=== PATIENT | male | born 1965 | race Caucasian/White ===

== ENCOUNTER 2025-03-14 21:23 | Emergency (ER) | payer OTHER, SELFPAY ==
[2025-03-14 21:44] VITALS: BP 112/89; PULSE 80; RESP 16; TEMP 36.8; O2SAT 98
[2025-03-15 00:49] VITALS: BP 138/114; PULSE 71; RESP 16; O2SAT 99
[2025-03-15 00:53] VITALS: BP 135/89; PULSE 67; RESP 16; O2SAT 98
--- NOTE | 2025-03-15 01:28 | ED_ITS ---
HPI - General Adult General Chief complaint: Back Pain/Injury Stated complaint: back pain Time Seen by Provider: 03/15/25 00:52 History of Present Illness HPI narrative: This is a 59-year-old male history of chronic knee pain presenting for knee pain and back spasms. 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 At the end of his day he started to get spasms in his mid back and his lower back. He also has aching pain in his knees which is chronic he thinks he needs a total knee replacement. No traumatic injury. He has been taking NSAIDs and tizanidine with minimal relief. No lower extremity weakness urinary retention or bowel incontinence. No fevers history of cancer. Denies drug use. Related Data Allergies Allergy/AdvReac Type Severity Reaction Status Date / Time codeine Allergy Intermediate Swelling Verified 03/14/25 21:49 Exam Narrative: APPEARANCE: No apparent distress. Head: atraumatic. EYES: EOMI, NOSE: Atraumatic NECK//back: No overlying skin changes. Tenderness to palpation over the parathoracic and paralumbar muscles. RESPIRATORY: No increased rate of breathing clear to auscultation CARDIOVASCULAR: RRR, no peripheral edema ABDOMINAL: Non-distended MUSCULOSKELETAl: Focal exam of the knees revealed no obvious swelling. No overlying skin changes. No warmth. Patient is able ambulate. Legs are neurovascularly intact. NEURO: Alert. Moving 4/4 extremities SKIN:: Warm, dry. Normal color PSYCHIATRIC: Normal affect Course Vital Signs Vital signs: Vital Signs Temperature 98.2 F 03/14/25 21:44 Pulse Rate 80 03/14/25 21:44 Respiratory Rate 16 03/14/25 21:44 Blood Pressure 112/89 03/14/25 21:44 Pulse Oximetry 98 03/14/25 21:44 Oxygen Delivery Room Air 03/14/25 21:44 Temperature 98.2 F 03/14/25 21:44 Pulse Rate 67 03/15/25 00:53 Respiratory Rate 16 03/15/25 00:53 Blood Pressure 135/89 03/15/25 00:53 Pulse Oximetry 98 03/15/25 00:53 Oxygen Delivery Room Air 03/15/25 00:49 Medical Decision Making [facility] Narrative Medical decision making narrative: -Course: 59-year-old male with a history of back spasms knee pain presenting with back spasms any pain. Physical exam is unremarkable. Patient be given symptomatic treatment. Patient has had 15 at an outside hospital so no need to repeat today. No midline spinal tenderness to indicate imaging for his back. He has requested crutches for his knees although I am not sure why. These were provided. Patient's discharged. -DDX includes but is not limited to: Back spasms, muscle strain, arthritis Vital Signs Vital Signs: Vital Signs Temperature 98.2 F 03/14/25 21:44 Pulse Rate 80 03/14/25 21:44 Respiratory Rate 16 03/14/25 21:44 Blood Pressure 112/89 03/14/25 21:44 Pulse Oximetry 98 03/14/25 21:44 Oxygen Delivery Room Air 03/14/25 21:44 Temperature 98.2 F 03/14/25 21:44 Pulse Rate 67 03/15/25 00:53 Respiratory Rate 16 03/15/25 00:53 Blood Pressure 135/89 03/15/25 00:53 Pulse Oximetry 98 03/15/25 00:53 Oxygen Delivery Room Air 03/15/25 00:49 Discharge Plan Discharge Clinical Impression: Muscle spasm, Acute knee pain Patient Disposition: Home Condition: Stable Instructions: Antibiotic Form, Muscle Spasm (ED) Additional Instructions: Please use the prescribed medications as directed for your back and knee pain. Please follow-up your primary care physician for further management. Patient Language: Albanian Prescriptions: New ibuprofen 800 mg tablet 800 mg PO TID PRN (Reason: pain) 7 Days Qty: 21 0RF acetaminophen 500 mg tablet 1,000 mg PO TID PRN (Reason: angelina) 7 Days Qty: 42 0RF methocarbamol 750 mg tablet 1,500 mg PO TID Qty: 45 0RF lidocaine 5 % adhesive patch,medicated 1 patch topical DAILY Qty: 15 0RF Rx Instructions: leave on most painful area for up to 12 hrs Follow-up/Referrals: UNKNOWN,DOCTOR [Primary Care Provider]
--- NOTE | 2025-03-15 01:46 | PC.NURSE ---
Pt ambulatory to bathroom
[2025-03-15] MEDS: ACETAMINOPHEN 500 MG TABLET 1000 MG PO (01:48)
[2025-03-15] MEDS: LIDOCAINE 5% PATCH 1 PATCH TRANSDERM (01:49)
[2025-03-15 01:58] VITALS: BP 140/97; PULSE 80; RESP 16; O2SAT 98
== END 2025-03-15 02:05 | disposition home or self-care (01) ==
PROVIDERS: Emergency Provider Emergency Medicine
DX: M62.838 Other muscle spasm (principal); M25.561 Pain in right knee; M25.562 Pain in left knee
CPT/HCPCS: 99284; A9270

== ENCOUNTER 2025-04-06 18:05 | Emergency (ER) | payer OTHER, SELFPAY ==
[2025-04-06 18:00] VITALS: BP 122/88; PULSE 102; RESP 17; TEMP 36.6; O2SAT 96
--- NOTE | 2025-04-06 18:09 | PC.NURSE ---
EDP made aware of pt flagging moderate risk on [place], pt denies thoughts of SI/HI, no sitter required at this time
--- NOTE | 2025-04-06 19:04 | ED.BACK ---
HPI - Back Pain/Injury General Chief Complaint: Back Pain/Injury Stated Complaint: back spasms Time Seen by Provider: 04/06/25 19:03 Source: patient and RN notes reviewed Mode of arrival: EMS Limitations: no limitations History of Present Illness HPI Narrative: Patient presents with report low back spasm as well as spasms in his bilateral ankles where he is also having pain. He has a chronic history of this. Initially reports that the back spasms are on the left but then seems indicates that they are bilateral in the flanks. He reports a history of vitamin deficiency. Patient had been on tizanidine but ran out a few days ago. This was prescribed by Natalie Bear, he believes this is a doctor through [facility]. He states that he has a history of a stress fracture and arthritis and chronic right knee pain that he was told was due to the tendon growing with the bone. 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 Treatment had been initiated by Dr Bowman. He has been told he needs right knee replacement. Patient has been walking 2-3 miles today which has exacerbated his pain. Does not currently drive a license. 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 Currently resides in [facility] in [place] which is a longterm for those in recovery. 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 He denies any history of fracture or recent trauma. No history of cancer. He denies intravenous drug use. Fevers or chills. Denies abdominal pain. He is not chronically been on steroids though he did have shots in his bilateral knees by his previous PCP Dr Washington in December. No diarrhea. He will occasionally experience numbness in his feet. He denies any urinary symptoms. No bowel or bladder incontinence. No saddle anesthesia. No syncope. Related Data Allergies Allergy/AdvReac Type Severity Reaction Status Date / Time codeine Allergy Intermediate Nausea Verified 04/06/25 18:07 [facility] Past Medical History Medical History Scoliosis Arthritis Stress fracture Chronic pain of right knee Hepatitis B Hepatitis C Vitamin deficiency Social History Social History Alcohol intake: former Alcohol use details: Quit 12/19/2024 Substance use: former Substance use type: methamphetamine Last use: 12/19/2024 Living arrangements: longterm Additional living arrangements comments: [facility], for recovery Exam Narrative: GENERAL: Well-appearing, well-nourished, and in no acute distress. HEAD: Normocephalic, atraumatic. EYES: Non injected, non icteric ENT: Nares clear, no rhinorrhea or epistaxis. Gross auditory acuity intact. NECK: Supple. No meningismus. CHEST: Speaking in full sentences. No respiratory distress. HEART: Regular rate and rhythm. . ABDOMEN: Soft, nondistended. No rigidity or guarding. Not peritoneal EXTREMITIES: Normal range of motion. No lower extremity edema. SKIN: Warm, dry, no rash. BACK: No midline tenderness to palpation. Bilateral paraspinal and flank pain without CVA tenderness, no appreciable spasm Demonstrates flexion extension of the lumbar spine. NEURO: No focal deficits. Alert and oriented. Answering questions. Following commands. Normal speech without aphasia or dysarthria. Sensation intact throughout back and bilateral lower extremities. 5/5 strength bilateral ankle dorsiflexion plantar flexion. PSYCH: Normal mood and affect. Course Vital Signs Vital signs: Vital Signs Temperature 97.9 F 04/06/25 18:00 Pulse Rate 102 H 04/06/25 18:00 Respiratory Rate 17 04/06/25 18:00 Blood Pressure 122/88 04/06/25 18:00 Pulse Oximetry 96 04/06/25 18:00 Oxygen Delivery Room Air 04/06/25 18:00 Temperature 97.9 F 04/06/25 18:00 Pulse Rate 72 04/06/25 21:48 Respiratory Rate 17 04/06/25 21:48 Blood Pressure 114/92 H 04/06/25 21:48 Pulse Oximetry 100 04/06/25 21:48 Oxygen Delivery Room Air 04/06/25 18:00 MDM - Back Pain/Injury MDM Narrative Medical decision making narrative: Patient presents report FX past bilateral a chronic issue for him by his report as per review previous presentation. In the emergency department he is afebrile with vital signs that show mild tachycardia. It appears that the prescriber of his tizanidine which he has been out of for a few days was Natalie Bear is a behavioral health [employer]. Back has no deformities, external skin changes, or signs of trauma. Curvature is within normal limits. No tenderness is noted on palpation of the spinous processes which are midline. Lumbar paraspinal muscles are without spasm. Patient demonstrates flexion, extension. Sensation to the lower extremities is normal bilaterally. Dorsi/plantar flexion is normal bilaterally. They do not have any other red flags for fracture, malignancy, infection (e.g. spinal epidural abscess), or aortic/vascular: Age, no trauma, not on chronic steroids, no history of cancer, no fever, IV drug use, immunosuppression, abdominal pain, syncope, or urinary symptoms. Given this, will defer further imaging at this time. Discussed this with patient who agrees as he has had imaging previously. Patient is wary of receiving opiates given he has a friend who had opiate addiction. Amenable to a one time dose of a benzodiazepine as a muscle relaxer. I did note I would indicate in DC instructions meds he had received in the emergency department as part of his emergency care given that he is in a house/program for recovery from addiction. Through shared decision making he was amenable to obtaining basic lab work to assess for possible other causes beyond jennifer musculoskeletal etiologies. Normocytic anemia. No prior for comparison. No leukocytosis. He has an azotemia but with a creatinine that is technically within normal limits. No prior for comparison. His AST and ALT are elevated with no prior for comparison although he reports history of hepatitis. CPK normal. No abnormalities of potassium or magnesium. No thrombocytopenia. Patient is reassessed at approximately 8:15 p.m.. He reports he is feeling much better terms of pain and spasm although medication did make him feel a little loopy. Urinalysis cloudy with ketonuria however without signs of infection were hematuria. UDS negative. Patient is otherwise stable for discharge at time. He is prescribed a multimodal pain regimen advised follow-up with primary care physician, either his home where he is provided the name of an alternative doctor if he is unable to reestablish care with his previous PCP. He is given strict ED return precautions and verifies understanding. Differential Diagnosis Differential diagnosis: Likely other (Rhabdomyolysis, hypokalemia, hypomagnesemia, symptomatic anemia) Medical Records Attestation: I reviewed the patient's medical records. Medical records narrative: REVIEWED [place] Record EMR from [facility] Right knee Xray 01/09/25 IMPRESSION: 1. 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 CPPD or Other forms of arthropathy are also possible 2. Trace joint effusion with probable joint bodies. 3. Chondrocalcinosis. He had received tizanidine Rx at that time by Dr Talon Rojas. No labs obtained at that time. Also reviewed ED note from previous [facility] ED visit Lab Data Attestation: I reviewed the patient's lab results. 04/06/25 19:37 04/06/25 19:37 Labs: Lab Results 04/06/25 04/06/25 04/06/25 Range/Units 19:36 19:37 20:15 WBC 6.3 (4.5-10.0) K/mm3 RBC 4.15 L (4.6-6.20) M/mm3 Hgb 13.3 L (14.0-18.0) g/dL Hct 40.8 L (42.0-52.0) % MCV 98.3 (80-100) fl MCH 32.0 (26-34) pg MCHC 32.6 (32-36) g/dl RDW 12.6 (11.5-14.5) % Plt Count 253 (150-375) k/mm3 MPV 8.8 (7.4-10.4) fl Immature Gran % (Auto) 0.2 (0-0.5) % Neut % (Auto) 63.8 (45.5-73.1) % Lymph % (Auto) 22.4 (18.3-44.2) % Holt % (Auto) 9.4 H (2.6-8.5) % Eos % (Auto) 3.7 (0-4.4) % Baso % (Auto) 0.5 (0.2-1.2) % Lymph # (Auto) 1.40 (0.9-3.2) K/mm3 Holt # (Auto) 0.6 (0.1-0.6) K/mm3 Eos # (Auto) 0.2 (0-0.3) K/mm3 Baso # (Auto) 0.0 (0.0-0.1) K/mm3 Abs Immat Gran (auto) 0.01 (0.00-0.031) K/mm3 Absolute Neuts (auto) 4.0 (1.3-6.7) K/mm3 Absolute Nucleated RBC 0.000 (0.0-0.012) K/mm3 Nucleated RBC % 0.0 (0.0-0.2) % Sodium 136 L (137-145) mmol/L Potassium 4.3 (3.4-5.0) mmol/L Chloride 105 (98-107) mmol/L Carbon Dioxide 26 (22-30) mmol/L Anion Gap 5 (4-12) mmol/L BUN 30 H (9-20) mg/dL Creatinine 1.03 (0.7-1.3) mg/dL Estim Creat Clear Calc 84 ml/min Estimated GFR > 60 (59 - ) Glucose 115 H (65-110) mg/dL Calcium 9.5 (8.4-10.2) mg/dL Magnesium 2.3 (1.6-2.3) mg/dL Total Bilirubin 0.4 (0.2-1.3) mg/dL AST 69 H (17-59) U/L ALT 88 H (6-50) U/L Alkaline Phosphatase 71 (38-126) U/L Total Creatine Kinase 141 (55-170) U/L Total Protein 8.4 H (6.3-8.2) g/dL Albumin 4.3 (3.5-5.1) g/dL Lipase 181 (23-300) U/L Urine Color Dark yellow (Yellow) Urine Appearance Cloudy H (Clear) Urine pH 5.0 (5.0-9.0) Ur Specific [place] 1.032 (1.001-1.035) Urine Protein Trace (Negative) mg/dL Urine Glucose (UA) Negative (Negative) mg/dL Urine Ketones Trace H (Negative) mg/dL Ur Blood (Man) Negative (Negative) Urine Nitrate Negative (Negative) Urine Bilirubin Negative (Negative) Urine Urobilinogen 1.0 (<2.0) mg/dL Add Ur Microanalysis Reviewed Leukocyte Esterase Rfl Negative (Negative) RAMON/UL Urine RBC 0-2 (0-2) /hpf Urine WBC 0-5 (0-3) /hpf Ur Squamous Epith Cells Occasional (Few) /hpf Urine Bacteria None seen /hpf Urine Casts >20 Hyaline Casts Present (None) /lpf Urine Opiates Screen Negative (Negative) Urine Methadone Screen Negative (Negative) Ur Barbiturates Screen Negative (Negative) Ur Phencyclidine Scrn Negative (Negative) Ur Amphetamine Screen Negative (Negative) U Benzodiazepines Scrn Negative (Negative) Urine Cocaine Screen Negative (Negative) U Cannabinoids Screen Negative (Negative) Discharge Plan Discharge Clinical Impression: Normocytic anemia, Azotemia, Transaminitis, Spasm of back muscles, Bilateral ankle pain, Bilateral flank pain Patient Disposition: Home Condition: Stable Instructions: Antibiotic Form, Flank Pain (ED), Arthralgia (ED), Muscle Spasm (ED), Anemia (ED), Transaminitis (ED) Additional Instructions: Patient notably received a dose of a muscle relaxer that is a benzodiazepine as part of his Emergency care. His urine drug screen prior to receiving this medication was normal/without abnormalities. == Acetaminophen/Tylenol (maximum 4000 mg per day) is safe to take with NSAIDs (ibuprofen/Motrin) for pain relief. A muscle relaxer and lidocaine patch have also been prescribed. The rest of your work up did not reveal a cause of your symptoms such as profound low red blood cell count (it was only mildly low/abnormal), electrolyte abnormalities, increased muscle breakdown, low platelets, etc. Follow-up with primary care physician. If you do not have 1, the name of a doctor is listed below. Return to the ER if you have increased pain in your back, you develop lower extremity weakness/numbness/paralysis, you have numbness or tingling in your private parts, or you are unable to control your ability to urinate/stool. Patient Language: Kinyarwanda Prescriptions: New lidocaine 4 % adhesive patch,medicated 1 patch topical DAILY PRN (Reason: pain) Qty: 10 0RF ibuprofen 600 mg tablet 600 mg PO TID PRN (Reason: pain) Qty: 30 0RF acetaminophen 500 mg capsule 1,000 mg PO Q6H PRN (Reason: pain) Qty: 30 0RF methocarbamol 750 mg tablet 750 mg PO HS Qty: 7 0RF No Action ibuprofen 800 mg tablet 800 mg PO TID PRN (Reason: pain) 7 Days Qty: 21 0RF acetaminophen 500 mg tablet 1,000 mg PO TID PRN (Reason: angelina) 7 Days Qty: 42 0RF methocarbamol 750 mg tablet 1,500 mg PO TID Qty: 45 0RF lidocaine 5 % adhesive patch,medicated 1 patch topical DAILY Qty: 15 0RF Rx Instructions: leave on most painful area for up to 12 hrs Follow-up/Referrals: Caryl Gonzalez DO [Physician, Family Practice] UNKNOWN,DOCTOR [Non-Staff] Stand Alone Forms: Work/School Release IP Time of Disposition: 20:57
[2025-04-06] MEDS: diazePAM (*CRX) 5 MG TABLET PO (19:34)
[2025-04-06 19:42] LABS: Hematocrit 40.8 % (42.0-52.0); Hemoglobin 13.3 g/dL (14.0-18.0); Immature Granulocyte Percent A 0.2 % (0-0.5); Lymphocytes Absolute Auto 1.40 K/mm3 (0.9-3.2); Mean Corpuscular HGB Conc 32.6 g/dl (32-36); Mean Corpuscular Hemoglobin 32.0 pg (26-34); Mean Corpuscular Volume 98.3 fl (80-100); Nucleated Red Blood Cells Absolute Auto 0.000 K/mm3 (0.0-0.012); Nucleated Red Blood Cells Perc 0.0 % (0.0-0.2); Platelet Count Result 253 k/mm3 (150-375); Red Blood Count 4.15 M/mm3 (4.6-6.20); White Blood Count 6.3 K/mm3 (4.5-10.0)
[2025-04-06 19:54] LABS: Alanine Aminotransferase 88 U/L (6-50); Albumin Level 4.3 g/dL (3.5-5.1); Alkaline Phosphatase 71 U/L (38-126); Anion Gap 5 mmol/L (4-12); Aspartate Amino Transferase 69 U/L (17-59); Bilirubin,Total 0.4 mg/dL (0.2-1.3); Blood Urea Nitrogen 30 mg/dL (9-20); Calcium 9.5 mg/dL (8.4-10.2); Carbon Dioxide 26 mmol/L (22-30); Chloride 105 mmol/L (98-107); Creatine Kinase 141 U/L (55-170); Estimated CRCL calculation 84 ml/min; Estimated Glomerular Filt Rate > 60; Glucose 115 mg/dL (65-110); Magnesium 2.3 mg/dL (1.6-2.3); Potassium 4.3 mmol/L (3.4-5.0); Sodium 136 mmol/L (137-145); Total Protein 8.4 g/dL (6.3-8.2)
[2025-04-06 20:30] LABS: Add Urine Microscopic? YES; Appearance Urine Cloudy (Clear); Glucose Urine UA Negative (Negative); Leukocyte Esterase Ur Negative LEU/UL (Negative); Need Manual Microscopic Reviewed; Nitrate Urine Negative (Negative); Non Pathogenic Casts >20; Specific Grav Ur 1.032 (1.001-1.035)
[2025-04-06 20:39] LABS: Lipase 181 U/L (23-300)
[2025-04-06 20:42] LABS: Cannabinoid Screen Urine Negative (Negative)
--- NOTE | 2025-04-06 21:23 | PC.NURSE ---
Pt discharged at this time. Pt is calling around for a ride.
[2025-04-06 21:48] VITALS: BP 114/92; PULSE 72; RESP 17; O2SAT 100
== END 2025-04-06 21:56 | disposition home or self-care (01) ==
PROVIDERS: Emergency Provider Student in an Organized Health Care Education/Training Program
DX: M62.830 Muscle spasm of back (principal); D64.9 Anemia, unspecified; R79.89 Other specified abnormal findings of blood chemistry; R74.01 Elevation of levels of liver transaminase levels; M25.572 Pain in left ankle and joints of left foot; M25.571 Pain in right ankle and joints of right foot; R10.31 Right lower quadrant pain; R10.32 Left lower quadrant pain; Z87.891 Personal history of nicotine dependence
CPT/HCPCS: 36415; 80053; 80307; 81001; 82550; 83690; 83735; 85025; 99283; A9270